=== PATIENT | female | born 1995 | race Caucasian/White ===

== ENCOUNTER 2016-12-14 15:48 | Emergency (ER) | payer OTHER ==
[~2016-12-14] VITALS: Ht 162.6 cm; Wt 100.2 kg
[~2016-12-14 15:48] MED LIST: COLACE100 M1 PO; DEPO-PROVER150 MG/ML IM; DICLEGIS DR 101 EACH PO; DOXYCYCLINE100 M3 PO; EPIPEN 2-P0.3 MG/0.3 IM; FLEXERIL10 MG PO; GABAPENTIN300 MG PO; HYDROXYZINE PAM25 M1 PO; HYDROXYZINE PAM25 M2 PO; LIDOCAINE1 EACH TOP; METHADONE10 MG/5 M2 PO; MOTRIN800 MG PO; PERCOCET 325 MG1 TA2 PO; PRENATAL TABLE1 EAC2 PO; PROAIR HFA8.5 GM INH; REGLAN10 M1 PO; REMERON30 MG PO; ULTRAM(MONOGRAP50 MG PO; VOLTAREN75 MG PO; ZOFRAN ODT4 M1 SL
[2016-12-14 16:04] VITALS: BP 138/88
--- NOTE | 2016-12-14 16:50 | RADIOLOGY REPORT ---
EXAMINATION: XR WRIST, RIGHT CLINICAL INFORMATION: Right wrist pain and swelling. COMPARISON: None. TECHNIQUE: AP, lateral, oblique and navicular views of the right wrist. FINDINGS: No acute fracture or dislocation of the right wrist. Carpal alignment appears grossly maintained. The first and second carpal are intact. No bone, joint or soft tissue abnormality is demonstrated. IMPRESSION: No acute fracture or dislocation of the right wrist.
[2016-12-14] MEDS ORDERED: MOBIC15 M1 PO ×2 (18:13→18:29)
--- NOTE | 2016-12-14 18:14 | ED HAND/WRIST INJURY COMPLAINT ---
History of Present Illness General Chief Complaint: Hand or Wrist Injury Stated Complaint: RIGHT WRIST PAIN Source: patient Exam Limitations: no limitations Vital Signs & Intake/Output Vital Signs & Intake/Output Vital Signs Date Time Temp Pulse Resp B/P Pulse O2 O2 Flow FiO2 Ox Delivery Rate 12/14 1604 97.1 76 18 138/88 98 Room Air Allergies Coded Allergies: codeine (BLACK OUT PER PT 12/14/16) oxycodone (PASSED OUT 07/07/16) shellfish derived (ANAPHYLAXIS 07/07/16) venom-honey bee (BEE VENOM (HONEY BEE)) (ANAPHYLAXIS 07/07/16) Opioids - Morphine Analogues (HX OPIOID DEPENDENCE. PT REQUESTING NO OPIOIDS GIVEN. 07/07/16) Reconcile Medications Clotrimazole/Betamethasone Dip (Clotrimazole-Betamethasone Crm) 1 %-0.05 % CREAM..G. 1 MARIO TOP BID C SECTION (Reported) apply to affected area(s) Epinephrine (Epipen 2-Gilbert) 0.3 MG/0.3 ML AUTO.INJCT 0.3 MG IM AD PRN ALLERGIC REACTION (Reported) Ibuprofen 600 MG TABLET 1 TAB PO PRN PAIN/INFLAMMATION (Reported) with food Meloxicam (Mobic) 15 MG TABLET 1 TAB PO DAILY pain Sertraline HCl 50 MG TABLET 0.5 TAB PO DAILY PSOT DEPRESSION (Reported ) Triage Note: COMPLAINS OF R WRIST PAIN SINCE SEP , HAS NOT BEEN TO MD GUERO DEVRIES Triage Nurses Notes Reviewed? yes Duration: hour(s):, constant, continues in ED Timing: recent history Injury Environment: home Pain/Injury Location: Right: Wrist. No Modifying Factors: none : No Patient currently breastfeeds: No HPI: 21-year-old female comes into emergency room with complaints of right wrist pain has been going on for many weeks. Patient reports that over a month ago she had punched something is been experiencing wrist pain since then. Patient didn't again initially evaluated because she was and just gave about a month ago. Patient is currently not breast-feeding. Patient reports that she's had this persistent right wrist pain. Hurts with range of motion. Denies any other associated symptoms. Past History Travel History Traveled to [place] past 21 day No Medical History Any Pertinent Medical History? 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 No Review of Systems Review of Systems Constitutional: Reports: no symptoms. EENTM: Reports: no symptoms. Respiratory: Reports: no symptoms. Cardiovascular: Reports: no symptoms. GI: Reports: no symptoms. Genitourinary: Reports: no symptoms. Musculoskeletal: Reports: see HPI. Skin: Reports: no symptoms. Neurological/Psychological: Reports: no symptoms. Hematologic/Endocrine: Reports: no symptoms. Immunologic/Allergic: Reports: no symptoms. All Other Systems: Reviewed and Negative Physical Exam Physical Exam General Appearance: well developed/nourished Head: atraumatic Eyes: Bilateral: normal appearance. Ears, Nose, Throat: normal ENT inspection, hearing grossly normal Neck: normal inspection Cardiovascular/Respiratory: no respiratory distress Back: normal inspection Wrist Right: soft tissue tenderness, limited range of motion, POSITIVE Marce'S TEST Hand Left: normal inspection, normal range of motion Hand Right: normal inspection, normal range of motion Neurologic/Tendon: normal sensation, normal motor functions, normal tendon functions, responds to pain, no evidence tendon injury, no pulse deficit Skin: intact, normal color, warm/dry Lymphatic: no anterior cervical lynne Progress Differential Diagnosis: dislocation, fracture, gout, paronychia, septic arthritis, sprain, tenosynovitis Plan of Care: Orders Procedure Date/time Status Durable Medical Equipment 12/14 1811 Active Diagnostic Imaging: Viewed by Me: Radiology Read. Discussed w/RAD: Radiology Read. Radiology Impression: SERVICE DATE: 12/14/161606 EXAM TYPE: RAD - XRY-WRIST COMPLETE-RIGHT EXAMINATION: XR WRIST, RIGHT CLINICAL INFORMATION: Right wrist pain and swelling. COMPARISON: None. TECHNIQUE: AP, lateral, oblique and navicular views of the right wrist. FINDINGS: No acute fracture or dislocation of the right wrist. Carpal alignment appears grossly maintained. The first and second carpal are intact. No bone, joint or soft tissue abnormality is demonstrated. IMPRESSION: No acute fracture or dislocation of the right wrist. DICTATED BY: KONRAD ELAINE,JULIANA DATE/TIME DICTATED:12/14/161637 FURNITURE MOVER:ZACARIAS DATE/TIME TRANSCRIBED:12/14/161637 Departure Departure Disposition: HOME OR SELF CARE Condition: Stable Clinical Impression Primary Impression: De Quervain's tenosynovitis, right Referrals: PATIENT HAS NO PRIMARY CARE DR (PCP/Family) RAKESH ELAINE,DARY Arevalo Additional Instructions: Take mobic as prescribed. Rest. Follow-up with orthopedic if not better in 14 days. Return if any other concerns worsening symptoms. Please go over all results of today's visit with your primary care doctor. Contact your primary care doctor to let them know you were here in the emergency room. There may be nonspecific findings which may not be related to your visit today here in the emergency room but may require further evaluation and chronic monitoring by your primary care doctor. If you had a laceration today the chance of foreign body always remains. You should follow-up with your primary care doctor for recheck in 3-5 days for a wound check. If you had an x-ray done there is a chance that a fracture could have been missed on initial read and you should follow-up with your primary care doctor for repeat x-rays if symptoms persist. If your blood pressure was elevated here in the emergency room please have rechecked by her primary care doctor within the next 48 hours by your primary care doctor. If you were prescribed a narcotic here in the emergency room or any type of controlled substances you're not allowed to drive while taking this medication or operate any type of heavy machinery. Narcotics can make you feel lightheaded dizziness nausea and can cause constipation. You may need to tow picker a stool softener. Thank you for choosing [facility] emergency room. Please return to the emergency room immediately if you have any other concerns worsening of symptoms. Departure Forms: Customer Survey General Discharge Information Prescriptions: Current Visit Scripts Meloxicam (Mobic) 1 TAB PO DAILY #14 TAB Procedures Splinting Location: right wrist Manual Alignment Performed: No Pre-Made Type: velcro Splint: thumb spica, wrist Splint Applied By: splint applied by me Pre-Proc Neuro Vasc Exam: normal Post-Proc Neuro Vasc Exam: normal
[2016-12-14] MEDS ORDERED: SERTRALINE HCL50 MG PO (18:15)
[2016-12-14] MEDS ORDERED: CLOTRIMAZOLE-BE15 GM TOP (18:15)
[2016-12-14] MEDS ORDERED: IBUPROFEN600 M1 PO (18:15)
== END 2016-12-14 18:32 ==
LOC: ERH 15:48
DX: M65.88 Other synovitis and tenosynovitis, other site (principal)
CPT/HCPCS: 73110-RT

== ENCOUNTER 2017-01-18 14:19 | Emergency (ER) | payer OTHER ==
[~2017-01-18] VITALS: Ht 162.6 cm; Wt 100.7 kg
[~2017-01-18 14:19] MED LIST changes: +CLOTRIMAZOLE-BE15 GM TOP; +IBUPROFEN600 M1 PO; +MOBIC15 M1 PO; +SERTRALINE HCL50 MG PO
[2017-01-18 14:22] VITALS: BP 139/88
--- NOTE | 2017-01-18 14:56 | ED HAND/WRIST INJURY COMPLAINT ---
History of Present Illness General Chief Complaint: Hand or Wrist Injury Stated Complaint: R HAND INJURY Source: patient, old records Exam Limitations: no limitations Vital Signs & Intake/Output Vital Signs & Intake/Output Vital Signs Date Time Temp Pulse Resp B/P Pulse O2 O2 Flow FiO2 Ox Delivery Rate 01/18 1422 97.3 91 20 139/88 96 Room Air Allergies Coded Allergies: codeine (BLACK OUT PER PT 12/14/16) oxycodone (PASSED OUT 07/07/16) shellfish derived (ANAPHYLAXIS 07/07/16) venom-honey bee (BEE VENOM (HONEY BEE)) (ANAPHYLAXIS 07/07/16) Opioids - Morphine Analogues (HX OPIOID DEPENDENCE. PT REQUESTING NO OPIOIDS GIVEN. 07/07/16) Reconcile Medications Clotrimazole/Betamethasone Dip (Clotrimazole-Betamethasone Crm) 1 %-0.05 % CREAM..G. 1 MARIO TOP BID C SECTION (Reported) apply to affected area(s) Epinephrine (Epipen 2-Gilbert) 0.3 MG/0.3 ML AUTO.INJCT 0.3 MG IM AD PRN ALLERGIC REACTION (Reported) Ibuprofen 600 MG TABLET 1 TAB PO PRN PAIN/INFLAMMATION (Reported) with food Meloxicam (Mobic) 15 MG TABLET 1 TAB PO DAILY pain Sertraline HCl 50 MG TABLET 0.5 TAB PO DAILY PSOT DEPRESSION (Reported ) Tramadol HCl 50 MG TABLET 1 TAB PO BIDP PRN pain Triage Note: PT TO ED C/O RIGHT HAND PAIN S/P PUNCHING A PUNCHING BAG ON WEDNESDAY. HAS BEEN TAKING MOTRIN WITH NO RELIEF. REFUSING MEDS IN TRIAGE. RIGHT HAND SWOLLEN AND SOME BRUISING NOTED. Triage Nurses Notes Reviewed? yes Occurred: 3 days ago Duration: day(s): (3), constant Timing: recent history Injury Environment: home Severity: moderate Severity Numbers: 7 Pain/Injury Location: Right: Hand. Context: blow Method of Injury: direct blow Modifying Factors: Improves With: pain medication, rest. Worsens With: movement. Associated Symptoms: swelling : No Patient currently breastfeeds: No HPI: 21-year-old male presents to emergency room complaining of right dorsal hand pain for the past 3 days. Patient states that she was punching a punching bag and states since then she has had progressing worsening aching throbbing pain. She is right-hand dominant. She been taking ibuprofen without improvement.. She denies any wrist forearm elbow or shoulder pain there is no other injury there is no fall she denies any numbness or tingling. Symptoms are aching constant nonradiating sudden onset. pt declining anything for pain. Past History Travel History Traveled to [place] past 21 day No Medical History Any Pertinent Medical History? 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 No Review of Systems Review of Systems Constitutional: Reports: see HPI. All Other Systems: Reviewed and Negative Comments Review of systems: See HPI, All other systems negative. Constitutional, no chills no fever, no malaise HEENT: No visual changes no sore throat no congestion, Cardiovascular: No chest pain , no palpitation Skin, no rashes, no change in skin Respiratory: No dyspnea no cough no sputum GI: No nausea no vomiting, : No dysuria Muscle skeletal: joint pain, joint swelling, no back pain, no neck pain, Neurologic: No numbness no headache Psych: No stress Heme/endocrine: No bruising no bleeding Immunology: No lymphadenopathy Physical Exam Physical Exam General Appearance: well developed/nourished, no apparent distress, alert, awake Hand Left: normal inspection, normal range of motion Hand Right: swelling, tender Comments: Well-developed well-nourished patient in no apparent distress. HEENT: Atraumatic, extraocular motion intact Neck: Supple, FROM, Back: FROM Cardiovascular: Regular rate and rhythms no murmurs rubs Respiratory: No respiratory distress. Patient speaking in full complete sentences. Breath sounds clear to auscultation bilaterally: NO W/R/R Shoulder: Atraumatic/Stable. FROM . Elbow: Atraumatic/stable. FROM. No laxity Upper arm/Forearm: Atraumatic. Nontender. No edema, 5 out of 5 heel builder machine strength noted to bilateral upper extremities Hand/Wrist: Moderate swelling and ecchymosis over the dorsum of the right hand, limited range of motion of the right fifth finger secondary to pain, Skin intact. FROM of all other fingers full range motion of wrist no scaphoid tenderness Pulses: Normal/equal radial pulses bilaterally. Brisk cap refill Lower Extremities: full range of motion Neuro: Alert and oriented x3 Skin: Warm & dry;No appreciable rash on exposed skin Psych: Mood affect normal, normal memory normal judgment. Progress Differential Diagnosis: compartment syndrome, dislocation, fracture, sprain Plan of Care: Orders Procedure Date/time Status XRY-HAND, 3 View RIGHT 01/18 1454 Active X-ray ordered patient declining pain offered Discussed with patient her x-ray results, ulnar gutter splint was applied by me advise close follow-up with orthopedist, rest ice, Motrin for prescription for tramadol provided for breakthrough pain, and she will return anytime sooner with any concerns answered all her questions cleared for discharge PATIENT: PHILLIP MARTINEZ PRESENT AGE: 21 PATIENT ACCOUNT NO: [id number] : 94 LOCATION: [facility] ORDERING PHYSICIAN: MELISSA ORELLANA SERVICE DATE: 01/18/17-1453 EXAM TYPE: RAD - XRY-HAND, RIGHT EXAMINATION: XR HAND, RIGHT CLINICAL INFORMATION: Pain. Punched punching bag. COMPARISON: 12/14/2016 TECHNIQUE: AP, lateral, and oblique views of the right hand. FINDINGS: There is a new oblique/transverse fracture at the fifth metacarpal head/neck with possible intra-articular involvement. There is mild apex dorsal and apex medial evaluation at the fracture site. No additional fractures are identified. Stranding soft tissues are swollen. IMPRESSION: Acute oblique/transverse fracture of the fifth metacarpal head/neck with mild apex dorsal and apex ulnar angulation DICTATED BY: JOYCE ALAN MD DATE/TIME DICTATED:01/18/171513 SUPERVISOR DRAPERY HANGING:ZACARIAS DATE/TIME TRANSCRIBED:01/18/171513 CONFIDENTIAL, DO NOT COPY WITHOUT APPROPRIATE AUTHORIZATION. <Electronically signed in Other Vendor System> SIGNED BY: JOYCE ALAN MD 01/18/17 2670 (JAYSON ORELLANA,MELISSA) Diagnostic Imaging: Viewed by Me: Radiology Read. Discussed w/RAD: Radiology Read. Radiology Impression: PATIENT: PHILLIP MARTINEZ PRESENT AGE: 21 PATIENT ACCOUNT NO: [id number] : 94 LOCATION: [facility] ORDERING PHYSICIAN: MELISSA ORELLANA SERVICE DATE: 01/18/17-1453 EXAM TYPE: RAD - XRY-HAND, RIGHT EXAMINATION: XR HAND, RIGHT CLINICAL INFORMATION: Pain. Punched punching bag. COMPARISON: 12/14/2016 TECHNIQUE: AP, lateral, and oblique views of the right hand. FINDINGS: There is a new oblique/transverse fracture at the fifth metacarpal head/neck with possible intra-articular involvement. There is mild apex dorsal and apex medial evaluation at the fracture site. No additional fractures are identified. Stranding soft tissues are swollen. IMPRESSION: Acute oblique/transverse fracture of the fifth metacarpal head/neck with mild apex dorsal and apex ulnar angulation DICTATED BY: JOYCE ALAN MD DATE/TIME DICTATED:01/18/171513 SUPERVISOR DRAPERY HANGING:ZACARIAS DATE/TIME TRANSCRIBED:01/18/171513 CONFIDENTIAL, DO NOT COPY WITHOUT APPROPRIATE AUTHORIZATION. <Electronically signed in Other Vendor System> SIGNED BY: JOYCE ALAN MD 01/18/17 1520 Departure Departure Time of Disposition: 1530 Disposition: HOME OR SELF CARE Condition: Stable Clinical Impression Primary Impression: Boxers fracture Referrals: PATIENT HAS NO PRIMARY CARE DR (PCP/Family) GARY GODINEZ MD Additional Instructions: follow up with orthopedist dr godinez. keep splint on at all times until seen by orthopedist. ibuprofen 800mg every 8 hours. tramadol for breakthrough pain. use caution as this may make you drowsy. return with any concerns Departure Forms: Customer Survey General Discharge Information Prescriptions: Current Visit Scripts Tramadol HCl 1 TAB PO BIDP PRN pain #12 TAB Procedures Splinting Location: RUE Hand-Made Type: orthoglass Splint: ulnar Splint Applied By: splint applied by me Pre-Proc Neuro Vasc Exam: normal Post-Proc Neuro Vasc Exam: normal
--- NOTE | 2017-01-18 15:20 | RADIOLOGY REPORT ---
EXAMINATION: XR HAND, RIGHT CLINICAL INFORMATION: Pain. Punched punching bag. COMPARISON: 12/14/2016 TECHNIQUE: AP, lateral, and oblique views of the right hand. FINDINGS: There is a new oblique/transverse fracture at the fifth metacarpal head/neck with possible intra-articular involvement. There is mild apex dorsal and apex medial evaluation at the fracture site. No additional fractures are identified. Stranding soft tissues are swollen. IMPRESSION: Acute oblique/transverse fracture of the fifth metacarpal head/neck with mild apex dorsal and apex ulnar angulation
[2017-01-18] MEDS ORDERED: TRAMADOL HCL50 M1 PO (15:32)
== END 2017-01-18 15:33 ==
LOC: ERH 14:19
DX: S62.336A Displaced fracture of neck of fifth metacarpal bone, right hand, initial encounter for closed fracture (principal); W22.8XXA Striking against or struck by other objects, initial encounter; Y93.71 Activity, boxing
CPT/HCPCS: 73130-RT

== ENCOUNTER 2017-03-31 15:27 | Emergency (ER) | payer OTHER ==
[~2017-03-31] VITALS: Ht 162.6 cm; Wt 108.9 kg
[~2017-03-31 15:27] MED LIST changes: +TRAMADOL HCL50 M1 PO
--- NOTE | 2017-03-31 15:46 | ED GI/GU/ABDOMINAL COMPLAINT ---
History of Present Illness General Chief Complaint: Abdominal Pain/Flank Pain Stated Complaint: SIB DR. ROJAS FOR EVAL OF GALLBLADDER Source: patient Exam Limitations: no limitations Allergies Coded Allergies: codeine (BLACK OUT PER PT 04/01/17) oxycodone (PASSED OUT 04/01/17) shellfish derived (ANAPHYLAXIS 04/01/17) venom-honey bee (BEE VENOM (HONEY BEE)) (ANAPHYLAXIS 04/01/17) Opioids - Morphine Analogues (HX OPIOID DEPENDENCE. PT REQUESTING NO OPIOIDS GIVEN. 04/01/17) Triage Note: SENT IN BY DR. ROJAS'S OFFICE FOR "GALLSTONES, I PASSED OUT FROM THE PAIN." PT HAD ULTRASOUND AND BLOODWORK DONE 1 WEEK AGO. PAIN IS WORSENING. Triage Nurses Notes Reviewed? yes ? N Is pt currently ? No Onset: Abrupt Duration: week(s):, getting worse, intermittent Quality/Severity: moderate, sharpness, severe Location: right upper quadrant Radiation: no radiation No Modifying Factors: none HPI: 21-year-old female comes into emergency room with complaints of right upper quadrant pain. Patient reports that she has known gallstones that she's been dealing with for many months. Pain is gotten worse recently. Denies any fever or vomiting. Sharp pain. Nonradiating. Denies any change in bowel movement. Denies any other associated symptoms. Patient reports that the pain was so severe today that she passed out from the pain. (CARLOZ ORELLANA,KIRSTIN) Vital Signs & Intake/Output Vital Signs & Intake/Output Vital Signs Date Time Temp Pulse Resp B/P B/P Pulse O2 O2 Flow FiO2 Mean Ox Delivery Rate 03/31 1721 98.1 72 18 151/84 98 Room Air 03/31 1538 99.1 110 20 134/100 99 Room Air 03/31 1535 Room Air ED Intake and Output 04/01 0000 03/31 1200 Intake Total 0 Output Total Balance 0 Intake, Oral 0 Patient 240 lb Weight Weight Reported by Patient Measurement Method Reconcile Medications Clotrimazole/Betamethasone Dip (Clotrimazole-Betamethasone Crm) 1 %-0.05 % CREAM..G. 1 MARIO TOP BID C SECTION (Reported) apply to affected area(s) Epinephrine (Epipen 2-Gilbert) 0.3 MG/0.3 ML AUTO.INJCT 0.3 MG IM AD PRN ALLERGIC REACTION (Reported) Ibuprofen 600 MG TABLET 1 TAB PO PRN PAIN/INFLAMMATION (Reported) with food Medroxyprogesterone Acetate (Depo-Provera) 150 MG/ML DESI 1 ML IM Q3M CONTROL (Reported) Meloxicam (Mobic) 15 MG TABLET 1 TAB PO DAILY pain Oxycodone HCl/Acetaminophen (Percocet 5-325 MG Tablet) 5 MG-325 MG TABLET 1-2 TAB PO Q6P PRN PAIN OXYCODONE HCL/ACETAMINOPHEN (Percocet 5-325 MG Tablet) 325 MG/5 MG TAB 1-2 TAB PO Q4-6 PRN PRN PAIN Sertraline HCl 50 MG TABLET 0.5 TAB PO DAILY PSOT DEPRESSION (Reported ) Tramadol HCl 50 MG TABLET 1 TAB PO BIDP PRN pain (MEET ELAINE,JESUS) Past History Travel History Traveled to [place] past 21 day No Medical History Any Pertinent Medical History? see below for history Neurological: NONE EENT: NONE Cardiovascular: NONE Respiratory: pneumonia Gastrointestinal: NONE Hepatic: NONE Renal: NONE Musculoskeletal: NONE Psychiatric: anxiety, depression, opioid dependence Endocrine: NONE Blood Disorders: NONE Cancer(s): NONE PHOTOGRAPHIC ARTIST/Reproductive: PREECLAMPSIA Other Medical Hx: She denies other medical problems Surgical History Surgical History: Psychosocial History What is your primary language Frisian Family History Hx Contributory? No (KIRSTIN COREY) Review of Systems Review of Systems Constitutional: Reports: no symptoms. EENTM: Reports: no symptoms. Respiratory: Reports: no symptoms. Cardiovascular: Reports: no symptoms. GI: Reports: see HPI. Genitourinary: Reports: no symptoms. Musculoskeletal: Reports: no symptoms. Skin: Reports: no symptoms. Neurological/Psychological: Reports: no symptoms. Hematologic/Endocrine: Reports: no symptoms. Immunologic/Allergic: Reports: no symptoms. All Other Systems: Reviewed and Negative (KIRSTIN COREY) Physical Exam Physical Exam General Appearance: well developed/nourished, alert, awake Head: atraumatic, normal appearance Eyes: Bilateral: normal appearance. Ears, Nose, Throat, Mouth: hearing grossly normal, moist mucous membrane Neck: normal inspection, full range of motion Respiratory: normal breath sounds, no respiratory distress Cardiovascular: regular rate/rhythm Gastrointestinal: soft, tenderness (RUQ) Back: normal inspection Extremities: normal range of motion Neurologic/Psych: awake, alert, oriented x 3, normal gait, normal mood/affect Skin: intact, normal color Core Measures ACS in differential dx? No Severe Sepsis Present: No Septic Shock Present: No (KIRSTIN COREY) Progress Differential Diagnosis: AMI, appendicitis, colon cancer, cholecystitis, diverticulitis, gastritis, hepatitis, hemorrhoids, ischemic bowel, inflamm bowel dis, intrauterine , pancreatitis, PID/cervicitis, peptic ulcer, PUD/ GERD, perforated viscous, SBO, threatened AB, UTI/pyelo Diagnostic Imaging: Viewed by Me: Ultrasound. Discussed w/RAD: Ultrasound. Radiology Impression: SERVICE DATE: 03/31/17 EXAM TYPE: US - US-LIMITED ABDOMEN EXAMINATION: ABDOMINAL ULTRASOUND LIMITED CLINICAL INFORMATION: Right upper quadrant pain. COMPARISON: 03/24/2017. TECHNIQUE: Real-time imaging of the right upper quadrant abdominal viscera. FINDINGS: PANCREAS: The visualized pancreatic head and body are normal in appearance. The remainder of the pancreas is obscured from visualization by the overlying bowel gas. LIVER: The liver is of normal size and echogenicity without focal lesions nor intrahepatic biliary ductal dilation. GALLBLADDER: There are calculi within the gallbladder lumen. There is no wall thickening or pericholecystic fluid. COMMON BILE DUCT: Normal in caliber measuring 0.3 cm in diameter. RIGHT KIDNEY: Normal. No hydronephrosis. No renal calculi or focal parenchymal lesions. The kidney measures 12.2 cm in maximum dimension. FREE FLUID: None. IMPRESSION: Cholelithiasis without sonographic manifestations of cholecystitis. DICTATED BY: IWONA VICENTE MD DATE/TIME DICTATED:03/31/171699 LABORATORY AIDE:ZACARIAS DATE/TIME TRANSCRIBED:03/31/171699 Initial ED EKG: normal intervals, normal p-waves, normal QRS complex, normal sinus rhythm, rate (80) Comments: Case was discussed with Dr. Greene. Patient has no evidence of cholecystitis. Patient will be discharged with follow-up tomorrow in the office. Pain improved. No white count. Understands and agrees with plan of care. EKG within normal limits. Syncopal episode secondary to pain. (KIRSTIN COREY) Plan of Care: Orders Procedure Date/time Status EKG 03/31 1546 Active URINE 05/10 1534 Complete URINALYSIS 03/31 1534 Complete LIPASE 03/31 153 Complete COMPREHENSIVE METABOLIC PANEL 03/31 153 Complete CBC WITHOUT DIFFERENTIAL 03/31 153 Complete AMYLASE 03/31 153 Complete Laboratory Tests 03/31/17 1653: Urine Color YEL, Urine Clarity CLEAR, Urine pH 8.5 H, Ur Specific [place] 1.015 , Urine Protein TRACE H, Urine Ketones NEG, Urine Nitrite NEG, Urine Bilirubin NEG, Urine Urobilinogen 1.0, Ur Leukocyte Esterase NEG, Ur Microscopic SEDIMENT EXAMINED, Urine RBC RARE, Ur Epithelial Cells MOD H, Urine Bacteria MANY H, Urine Hemoglobin NEG, Urine Glucose NEG, Urine Test NEGATIVE 03/31/17 1623: Anion Gap 12, Estimated GFR > 60, BUN/Creatinine Ratio 12.5, Glucose 110 H, Calcium 9.3, Total Bilirubin 1.2, AST 19, ALT 58 H, Alkaline Phosphatase 71, Total Protein 7.5, Albumin 4.5, Globulin 3.0, Albumin/Globulin Ratio 1.5, Amylase 36, Lipase 58, CBC w Diff NO MAN DIFF REQ, RBC 5.01, MCV 87.2, MCH 29.6, RDW 12.8, MPV 9.4, Gran % 74.7, Lymphocytes % 19.0 L, Monocytes % 5.5, Eosinophils % 0.5, Basophils % 0.3, Absolute Granulocytes 5.3, Absolute Lymphocytes 1.3, Absolute Monocytes 0.4, Absolute Eosinophils 0, Absolute Basophils 0, PUBS MCHC 33.9 Departure Departure Disposition: HOME OR SELF CARE Condition: Stable Clinical Impression Primary Impression: Biliary colic Secondary Impressions: Cholelithiasis Referrals: PATIENT HAS NO PRIMARY CARE DR (PCP) Additional Instructions: Take Percocet as prescribed. Follow-up with general surgeon tomorrow in the office. Return if any fever chills vomiting or any other concerns worsening symptoms. Please go over all results of today's visit with your primary care doctor. Contact your primary care doctor to let them know you were here in the emergency room. There may be nonspecific findings which may not be related to your visit today here in the emergency room but may require further evaluation and chronic monitoring by your primary care doctor. If you had a laceration today the chance of foreign body always remains. You should follow-up with your primary care doctor for recheck in 3-5 days for a wound check. If you had an x-ray done there is a chance that a fracture could have been missed on initial read and you should follow-up with your primary care doctor for repeat x-rays if symptoms persist. If your blood pressure was elevated here in the emergency room please have rechecked by her primary care doctor within the next 48 hours by your primary care doctor. If you were prescribed a narcotic here in the emergency room or any type of controlled substances you're not allowed to drive while taking this medication or operate any type of heavy machinery. Narcotics can make you feel lightheaded dizziness nausea and can cause constipation. You may need to brick picker a stool softener. Thank you for choosing [facility] emergency room. Please return to the emergency room immediately if you have any other concerns worsening of symptoms. Departure Forms: Customer Survey General Discharge Information Prescriptions: Current Visit Scripts Oxycodone HCl/Acetaminophen (Percocet 5-325 MG Tablet) 1-2 TAB PO Q6P PRN PAIN #15 TAB (KIRSTIN COREY) PA/SOFTWARE REVERSE ENGINEER Co-Sign Statement Statement: ED Attending supervision documentation- [] I saw and evaluated the patient. I have also reviewed all the pertinent lab results and diagnostic results. I agree with the findings and the plan of care as documented in the PA's/SOFTWARE REVERSE ENGINEER's documentation. [X] I have reviewed the ED Record and agree with the PA's/SOFTWARE REVERSE ENGINEER's documentation. [] Additions or exceptions (if any) to the PAs/SOFTWARE REVERSE ENGINEER's note and plan are summarized below: [] (MEET ELAINE,JESUS)
[2017-03-31 16:33] LABS: ABSOLUTE BASOPHIL COUNT 0 /CUMM (0.0-0.2); ABSOLUTE EOSINOPHIL COUNT 0 /CUMM (0.0-0.7); ABSOLUTE GRANULOCYTE CT 5.3 /CUMM (1.4-6.5); ABSOLUTE LYMPH COUNT 1.3 /CUMM (1.2-3.4); ABSOLUTE MONOCYTE COUNT 0.4 /CUMM (0.10-0.60); BASOPHIL % 0.3 % (0.0-2.0); EOSINOPHIL % 0.5 % (0-5); GRANULOCYTE % 74.7 % (42.2-75.2); HEMATOCRIT 43.7 % (37-47); MEAN CORPUSCULAR HGB 29.6 PG (27.0-31.0); MEAN CORPUSCULAR HGB CONC 33.9 G/DL (33.0-37.0); MEAN CORPUSCULAR VOLUME 87.2 FL (81.0-99.0); MEAN PLATELET VOLUME 9.4 FL (7.4-10.4); PLATELET COUNT 227 /CUMM (130-400); RBC DISTRIBUTION WIDTH 12.8 % (11.5-14.5); RED BLOOD CELL CT 5.01 /CUMM (4.20-5.40)
--- NOTE | 2017-03-31 17:04 | ULTRASOUND REPORT ---
EXAMINATION: ABDOMINAL ULTRASOUND LIMITED CLINICAL INFORMATION: Right upper quadrant pain. COMPARISON: 03/24/2017. TECHNIQUE: Real-time imaging of the right upper quadrant abdominal viscera. FINDINGS: PANCREAS: The visualized pancreatic head and body are normal in appearance. The remainder of the pancreas is obscured from visualization by the overlying bowel gas. LIVER: The liver is of normal size and echogenicity without focal lesions nor intrahepatic biliary ductal dilation. GALLBLADDER: There are calculi within the gallbladder lumen. There is no wall thickening or pericholecystic fluid. COMMON BILE DUCT: Normal in caliber measuring 0.3 cm in diameter. RIGHT KIDNEY: Normal. No hydronephrosis. No renal calculi or focal parenchymal lesions. The kidney measures 12.2 cm in maximum dimension. FREE FLUID: None. IMPRESSION: Cholelithiasis without sonographic manifestations of cholecystitis.
[2017-03-31 17:21] VITALS: BP 151/84
[2017-03-31] MEDS ORDERED: PERCOCET 5-3251 EACH PO (17:37)
== END 2017-03-31 17:45 ==
LOC: ERH 15:27
PROVIDERS: Physician Assistant Medical
DX: K80.50 Calculus of bile duct without cholangitis or cholecystitis without obstruction (principal); K80.20 Calculus of gallbladder without cholecystitis without obstruction
CPT/HCPCS: 81001; 81025; 93005; 93010; 96372

== ENCOUNTER 2017-04-01 11:02 | Emergency (ER) | payer OTHER ==
[~2017-04-01] VITALS: Ht 162.6 cm; Wt 108.9 kg
[~2017-04-01 11:02] MED LIST changes: +PERCOCET 5-3251 EACH PO
--- NOTE | 2017-04-01 11:52 | ED GI/GU/ABDOMINAL COMPLAINT ---
History of Present Illness General Chief Complaint: Abdominal Pain/Flank Pain Stated Complaint: ABDOMINAL PAIN, UNABLE TO EAT OR DRINK Source: patient, old records Exam Limitations: no limitations Vital Signs & Intake/Output Vital Signs & Intake/Output Vital Signs Date Time Temp Pulse Resp B/P B/P Pulse O2 O2 Flow FiO2 Mean Ox Delivery Rate 04/01 1514 98.0 72 12 112/58 100 Room Air 04/01 1244 86 16 124/85 98 Room Air 04/01 1107 98.9 102 15 138/90 96 Room Air Room Air Allergies Coded Allergies: codeine (BLACK OUT PER PT 04/01/17) oxycodone (PASSED OUT 04/01/17) shellfish derived (ANAPHYLAXIS 04/01/17) venom-honey bee (BEE VENOM (HONEY BEE)) (ANAPHYLAXIS 04/01/17) Opioids - Morphine Analogues (HX OPIOID DEPENDENCE. PT REQUESTING NO OPIOIDS GIVEN. 04/01/17) Reconcile Medications Clotrimazole/Betamethasone Dip (Clotrimazole-Betamethasone Crm) 1 %-0.05 % CREAM..G. 1 MARIO TOP BID C SECTION (Reported) apply to affected area(s) Epinephrine (Epipen 2-Gilbert) 0.3 MG/0.3 ML AUTO.INJCT 0.3 MG IM AD PRN ALLERGIC REACTION (Reported) Ibuprofen 600 MG TABLET 1 TAB PO PRN PAIN/INFLAMMATION (Reported) with food Medroxyprogesterone Acetate (Depo-Provera) 150 MG/ML DESI 1 ML IM Q3M CONTROL (Reported) Meloxicam (Mobic) 15 MG TABLET 1 TAB PO DAILY pain Oxycodone HCl/Acetaminophen (Percocet 5-325 MG Tablet) 5 MG-325 MG TABLET 1-2 TAB PO Q6P PRN PAIN OXYCODONE HCL/ACETAMINOPHEN (Percocet 5-325 MG Tablet) 325 MG/5 MG TAB 1-2 TAB PO Q4-6 PRN PRN PAIN Sertraline HCl 50 MG TABLET 0.5 TAB PO DAILY PSOT DEPRESSION (Reported ) Tramadol HCl 50 MG TABLET 1 TAB PO BIDP PRN pain Triage Note: PT TO ED FOR C/C OF RUQ PAIN 8/10 AND NAUSEA AND VOMITING. 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 SEEN HERE YESTERDAY AND DIAGNOSED WITH GALL STONES AND PT SPOKE TO HER DOCTOR WHO SAID TO COME IN. PT ALSO REPORTS SHE PASSED OUT TODAY 30 MINS SERVICE ORDER CLERK FRO MTHE PAIN. PT TOOK 2 PERCOCETS SERVICE ORDER CLERK WITHOUT RELIEF. Triage Nurses Notes Reviewed? yes ? N Is pt currently ? No Onset: Abrupt Duration: day(s):, constant Timing: recent history Quality/Severity: moderate, sharpness, severe Location: right upper quadrant Radiation: no radiation Activities at Onset: none No Modifying Factors: none HPI: 21-year-old female comes into emergency room with persistent right upper abdominal pain. Patient has history of gallstones. Patient was seen here last night. Patient was supposed to follow-up with Dr. Greene as an outpatient from surgery but he cannot fit her in until Wednesday. Patient reports that the pain has gotten progressively worse. Sharp. Intermittent. Patient reports a fever of 103 last night. Patient comes back in for further evaluation. Past History Travel History Traveled to [place] past 21 day No Medical History Any Pertinent Medical History? 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 No Review of Systems Review of Systems Constitutional: Reports: no symptoms. EENTM: Reports: no symptoms. Respiratory: Reports: no symptoms. Cardiovascular: Reports: no symptoms. GI: Reports: see HPI. Genitourinary: Reports: no symptoms. Musculoskeletal: Reports: no symptoms. Skin: Reports: no symptoms. Neurological/Psychological: Reports: no symptoms. Hematologic/Endocrine: Reports: no symptoms. Immunologic/Allergic: Reports: no symptoms. All Other Systems: Reviewed and Negative Physical Exam Physical Exam General Appearance: well developed/nourished, alert, awake, mild distress Head: atraumatic Eyes: Bilateral: normal appearance. Ears, Nose, Throat, Mouth: hearing grossly normal, moist mucous membrane Neck: normal inspection, full range of motion Respiratory: normal breath sounds, no respiratory distress Cardiovascular: regular rate/rhythm Gastrointestinal: soft, tenderness (RUQ) Back: normal inspection Extremities: normal range of motion Neurologic/Psych: awake, alert, oriented x 3 Skin: intact, normal color Core Measures ACS in differential dx? No Severe Sepsis Present: No Septic Shock Present: No Progress Differential Diagnosis: appendicitis, biliary colic, bowel obstruction, cholecystitis, diverticulitis, ectopic , gastritis, hepatitis, kidney stone, SBO Plan of Care: Orders Procedure Date/time Status COMPREHENSIVE METABOLIC PANEL 04/01 112 Complete CBC WITHOUT DIFFERENTIAL 04/01 112 Complete URINE 04/01 111 Complete URINALYSIS 04/01 1112 Complete EKG 04/01 1112 Active Laboratory Tests 04/01/17 1207: Anion Gap 12, Estimated GFR > 60, BUN/Creatinine Ratio 14.3, Glucose 88, Calcium 9.2, Total Bilirubin 0.7, AST 23, ALT 46, Alkaline Phosphatase 64, Total Protein 6.9, Albumin 4.1, Globulin 2.8, Albumin/Globulin Ratio 1.5, CBC w Diff NO MAN DIFF REQ, RBC 4.73, MCV 87.0, MCH 29.6, RDW 12.9, MPV 9.5, Gran % 50.7, Lymphocytes % 41.2, Monocytes % 6.0, Eosinophils % 1.8, Basophils % 0.3, Absolute Granulocytes 3.5, Absolute Lymphocytes 2.8, Absolute Monocytes 0.4, Absolute Eosinophils 0.1, Absolute Basophils 0, PUBS MCHC 34.1 04/01/17 1206: Urinalysis LIGHT H, Urine Color YEL, Urine Clarity HAZY H, Urine pH 6.0, Ur Specific [place] 1.025, Urine Protein NEG, Urine Ketones NEG, Urine Nitrite NEG, Urine Bilirubin NEG, Urine Urobilinogen 1.0, Ur Leukocyte Esterase TRACE H, Ur Microscopic SEDIMENT EXAMINED, Urine RBC RARE, Urine WBC 1-3 H, Ur Epithelial Cells MANY H, Urine Bacteria MANY H, Urine Mucus MOD H, Urine Hemoglobin NEG, Urine Glucose NEG, Urine Test NEGATIVE Initial ED EKG: normal intervals, normal p-waves, normal sinus rhythm, rate (82) , nonspecific ST T wave chg Prior EKG: unchanged Departure Departure Disposition: HOME OR SELF CARE Condition: Stable Clinical Impression Primary Impression: Biliary colic Secondary Impressions: Cholelithiasis Referrals: PATIENT HAS NO PRIMARY CARE DR (PCP/Family) Additional Instructions: Call Dr. Greene's office to schedule surgery for Wednesday or Wednesday of next week. Return if any other concerns. Please go over all results of today's visit with your primary care doctor. Contact your primary care doctor to let them know you were here in the emergency room. There may be nonspecific findings which may not be related to your visit today here in the emergency room but may require further evaluation and chronic monitoring by your primary care doctor. If you had a laceration today the chance of foreign body always remains. You should follow-up with your primary care doctor for recheck in 3-5 days for a wound check. If you had an x-ray done there is a chance that a fracture could have been missed on initial read and you should follow-up with your primary care doctor for repeat x-rays if symptoms persist. If your blood pressure was elevated here in the emergency room please have rechecked by her primary care doctor within the next 48 hours by your primary care doctor. If you were prescribed a narcotic here in the emergency room or any type of controlled substances you're not allowed to drive while taking this medication or operate any type of heavy machinery. Narcotics can make you feel lightheaded dizziness nausea and can cause constipation. You may need to tile picker a stool softener. Thank you for choosing [facility] emergency room. Please return to the emergency room immediately if you have any other concerns worsening of symptoms. Departure Forms: Customer Survey General Discharge Information Comments 04/01/2017 6:50:[address] Patient [address] Greene here in the emergency room. Patient is going to be scheduled to go to the the OR on Wednesday or Wednesday of next week. There is no available today. It is not emergent. Pain is under control.
[2017-04-01 12:29] LABS: ABSOLUTE BASOPHIL COUNT 0 /CUMM (0.0-0.2); ABSOLUTE EOSINOPHIL COUNT 0.1 /CUMM (0.0-0.7); ABSOLUTE GRANULOCYTE CT 3.5 /CUMM (1.4-6.5); ABSOLUTE LYMPH COUNT 2.8 /CUMM (1.2-3.4); ABSOLUTE MONOCYTE COUNT 0.4 /CUMM (0.10-0.60); BASOPHIL % 0.3 % (0.0-2.0); EOSINOPHIL % 1.8 % (0-5); GRANULOCYTE % 50.7 % (42.2-75.2); HEMATOCRIT 41.2 % (37-47); MEAN CORPUSCULAR HGB 29.6 PG (27.0-31.0); MEAN CORPUSCULAR HGB CONC 34.1 G/DL (33.0-37.0); MEAN PLATELET VOLUME 9.5 FL (7.4-10.4); PLATELET COUNT 224 /CUMM (130-400); RBC DISTRIBUTION WIDTH 12.9 % (11.5-14.5); RED BLOOD CELL CT 4.73 /CUMM (4.20-5.40); WHITE BLOOD CELL COUNT 6.9 /CUMM (4.8-10.8)
[2017-04-01 15:14] VITALS: BP 112/58
--- NOTE | 2017-04-02 11:39 | History & Physical Pre-Op ---
General Information and HPI History of Present Illness: Patient is a 21-year-old female who presents to the second ER visit with recurrent right upper quadrant abdominal pain. She is found previously to have gallstones by multiple sonograms. None of her ultrasounds showed acute inflammatory changes. She states these episodes happen after eating meals. She 's had 2 severe episodes in the past month. They are often times associated with nausea vomiting but no fevers chills or sweats. She began having symptoms during her most recent from which she has delivered 6 months ago. Allergies/Medications Allergies: Coded Allergies: codeine (BLACK OUT PER PT 04/01/17) oxycodone (PASSED OUT 04/01/17) shellfish derived (ANAPHYLAXIS 04/01/17) venom-honey bee (BEE VENOM (HONEY BEE)) (ANAPHYLAXIS 04/01/17) Opioids - Morphine Analogues (HX OPIOID DEPENDENCE. PT REQUESTING NO OPIOIDS GIVEN. 04/01/17) Home Med list Clotrimazole/Betamethasone Dip (Clotrimazole-Betamethasone Crm) 1 %-0.05 % CREAM..G. 1 MARIO TOP BID C SECTION (Reported) apply to affected area(s) Epinephrine (Epipen 2-Gilbert) 0.3 MG/0.3 ML AUTO.INJCT 0.3 MG IM AD PRN ALLERGIC REACTION (Reported) Ibuprofen 600 MG TABLET 1 TAB PO PRN PAIN/INFLAMMATION (Reported) with food Medroxyprogesterone Acetate (Depo-Provera) 150 MG/ML DESI 1 ML IM Q3M CONTROL (Reported) Meloxicam (Mobic) 15 MG TABLET 1 TAB PO DAILY pain Oxycodone HCl/Acetaminophen (Percocet 5-325 MG Tablet) 5 MG-325 MG TABLET 1-2 TAB PO Q6P PRN PAIN OXYCODONE HCL/ACETAMINOPHEN (Percocet 5-325 MG Tablet) 325 MG/5 MG TAB 1-2 TAB PO Q4-6 PRN PRN PAIN Sertraline HCl 50 MG TABLET 0.5 TAB PO DAILY PSOT DEPRESSION (Reported ) Tramadol HCl 50 MG TABLET 1 TAB PO BIDP PRN pain Past History Medical History Neurological: NONE EENT: NONE Cardiovascular: NONE Respiratory: pneumonia Gastrointestinal: NONE Hepatic: NONE Renal: NONE Musculoskeletal: NONE Psychiatric: anxiety, depression, opioid dependence Endocrine: NONE Blood Disorders: NONE Cancer(s): NONE 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 Abdominal pain per HPI. No dyspnea on exertion. No exertional chest pain. Remainder 12 points negative Exam & Diagnostic Data Last 24 Hrs of Vital Signs/I&O Vital Signs Date Time Temp Pulse Resp B/P B/P Pulse O2 O2 Flow FiO2 Mean Ox Delivery Rate 04/01 1514 98.0 72 12 112/58 100 Room Air 04/01 1244 86 16 124/85 98 Room Air Physical Exam: Gen.: She is obese looks older than her stated age no distress HEENT: Anicteric PERRL EOMI Neck: Supple no adenopathy no JVD no thyromegaly Chest: Normal respiratory excursion, normal respiratory effort, nontender Abdomen: Soft and tender right upper quadrant. No Martines sign no mass no hernia Extremities no cyanosis clubbing or edema Last 24 Hrs of Labs/Steven: Laboratory Tests 04/01/17 1207: Anion Gap 12, Estimated GFR > 60, BUN/Creatinine Ratio 14.3, Glucose 88, Calcium 9.2, Total Bilirubin 0.7, AST 23, ALT 46, Alkaline Phosphatase 64, Total Protein 6.9, Albumin 4.1, Globulin 2.8, Albumin/Globulin Ratio 1.5, CBC w Diff NO MAN DIFF REQ, RBC 4.73, MCV 87.0, MCH 29.6, RDW 12.9, MPV 9.5, Gran % 50.7, Lymphocytes % 41.2, Monocytes % 6.0, Eosinophils % 1.8, Basophils % 0.3, Absolute Granulocytes 3.5, Absolute Lymphocytes 2.8, Absolute Monocytes 0.4, Absolute Eosinophils 0.1, Absolute Basophils 0, PUBS MCHC 34.1 04/01/17 1206: Urinalysis LIGHT H, Urine Color YEL, Urine Clarity HAZY H, Urine pH 6.0, Ur Specific [place] 1.025, Urine Protein NEG, Urine Ketones NEG, Urine Nitrite NEG, Urine Bilirubin NEG, Urine Urobilinogen 1.0, Ur Leukocyte Esterase TRACE H, Ur Microscopic SEDIMENT EXAMINED, Urine RBC RARE, Urine WBC 1-3 H, Ur Epithelial Cells MANY H, Urine Bacteria MANY H, Urine Mucus MOD H, Urine Hemoglobin NEG, Urine Glucose NEG, Urine Test NEGATIVE Diagnostic Data Other Results Ultrasound shows gallstones without wall thickening or pericholecystic fluid. Bile duct is normal. Assessment/Plan Assessment/Plan: Biliary colic in obese, otherwise healthy young woman. Plan will be to discharge her from the emergency room and schedule outpatient laparoscopic cholecystectomy at the earliest availability of the OR. She is informed the risk of the operation including bleeding, infection, conversion to open, and the presence of postcholecystectomy diarrhea. She agrees to proceed As Ranked By This Provider Problem List: 1. Biliary colic
== END 2017-04-01 16:15 ==
LOC: ERH 11:02
PROVIDERS: Physician Assistant Medical
DX: K80.70 Calculus of gallbladder and bile duct without cholecystitis without obstruction (principal)
CPT/HCPCS: 81001; 81025; 93005; 93010; 96374; 96375

== ENCOUNTER → 2017-04-05 | Day surgery (SDC) | payer OTHER ==
[~2017-04-05] VITALS: Ht 162.6 cm; Wt 108.9 kg
[~2017-04-05] MED LIST changes: +KEFLEX500 M1 PO; +NORCO 5-325 TA1 EACH PO
--- NOTE | 2017-04-05 15:37 | Operative Report ---
Operative/Inv Procedure Report Surgery Date: 04/05/17 Name of Procedure: Laparoscopic cholecystectomy Pre-Operative Diagnosis: Biliary colic Post-Operative Diagnosis: Same Estimated Blood Loss: scant Surgeon/Donor Services Specialist: JORGITO SOSA MD/jillian Christianson Anesthesia: general endotracheal tube Operative Indication: See preoperative H&P Operative/Procedure Note Note: After informed consent patient is brought to the operating room and laid supine. General anesthesia was obtained and her abdomen was prepped and draped. The skin above the umbilicus infiltrated with local anesthesia and a curvilinear incision made sharply. We came down through the subcutaneous tissues bluntly and grasped the fascia with Ethan's. A fasciotomy was created sharply and stay sutures placed. The peritoneum was entered sharply and a blunt Dai port was placed. Pneumoperitoneum was achieved. 3, 5 mm ports were placed in the epigastrium and right upper quadrant after local anesthesia was instilled and under direct vision the camera. She's placed in reverse Trendelenburg and rotated towards the left. The gallbladder is identified. It was grasped at the dome and retracted towards the head. Infundibulum was then grasped. Adhesions to the undersurface were taken down with blunt and cautery dissection. We dissected both sides the triangle Calot peritoneal tissue with cautery. The artery was medial and its normal anatomic position. It was cauterized medially to allow it to be mobilized away from the duct. [place] was cleared of areolar tissue with cautery. The arteries and duct were doubly ligated with clips. Gallbladder is removed from the fossa electrocautery. There was a posterior branch of the artery on the right side which was dissected free and clipped ligated It was placed in Endo Catch bag and cinched up. Right upper quadrant was and suction irrigated normal saline. Hemostasis achieved with cautery. The ports were then removed and the gallbladder delivered and passed off the field. The fascia was closed with 0 Vicryl suture. Skin incisions closed with 4-0 Vicryl. Steri-Strips and sterile dressing applied. Sponge and needle counts are correct.
== END ==
LOC: STS 01:39
DX: K80.10 Calculus of gallbladder with chronic cholecystitis without obstruction (principal); E66.9 Obesity, unspecified; F17.200 Nicotine dependence, unspecified, uncomplicated; K80.21 Calculus of gallbladder without cholecystitis with obstruction
CPT/HCPCS: 81025; 88304; J0131; J0690; J2250

== ENCOUNTER 2017-04-14 17:23 | Emergency (ER) | payer OTHER ==
[~2017-04-14] VITALS: Ht 162.6 cm; Wt 108.9 kg
[~2017-04-14 17:23] MED LIST changes: -KEFLEX500 M1 PO; -NORCO 5-325 TA1 EACH PO
[2017-04-14 17:26] VITALS: BP 125/85
--- NOTE | 2017-04-14 18:12 | ED GI/GU/ABDOMINAL COMPLAINT ---
History of Present Illness General Chief Complaint: General Adult Stated Complaint: INCISION PAIN AND BLEEDING FROM SURGICAL SI Source: patient, old records Exam Limitations: no limitations Vital Signs & Intake/Output Vital Signs & Intake/Output Vital Signs Date Time Temp Pulse Resp B/P B/P Pulse O2 O2 Flow FiO2 Mean Ox Delivery Rate 04/14 1726 96.8 81 16 125/85 98 Room Air Allergies Coded Allergies: codeine (BLACK OUT PER PT 04/01/17) oxycodone (PASSED OUT 04/01/17) shellfish derived (ANAPHYLAXIS 04/01/17) venom-honey bee (BEE VENOM (HONEY BEE)) (ANAPHYLAXIS 04/01/17) Reconcile Medications Cephalexin (Keflex) 500 MG CAPSULE 1 CAP PO TID cellulitis Clotrimazole/Betamethasone Dip (Clotrimazole-Betamethasone Crm) 1 %-0.05 % CREAM..G. 1 MARIO TOP BID C SECTION (Reported) apply to affected area(s) Epinephrine (Epipen 2-Gilbert) 0.3 MG/0.3 ML AUTO.INJCT 0.3 MG IM AD PRN ALLERGIC REACTION (Reported) Hydrocodone/Acetaminophen ([place] 5-325 Tablet) 5 MG-325 MG TABLET 1 TAB PO Q4- 6 PRN PRN pain Ibuprofen 600 MG TABLET 1 TAB PO PRN PAIN/INFLAMMATION (Reported) with food Medroxyprogesterone Acetate (Depo-Provera) 150 MG/ML DESI 1 ML IM Q3M CONTROL (Reported) Meloxicam (Mobic) 15 MG TABLET 1 TAB PO DAILY pain Oxycodone HCl/Acetaminophen (Percocet 5-325 MG Tablet) 5 MG-325 MG TABLET 1-2 TAB PO Q6P PRN PAIN OXYCODONE HCL/ACETAMINOPHEN (Percocet 5-325 MG Tablet) 325 MG/5 MG TAB 1-2 TAB PO Q4-6 PRN PRN PAIN Sertraline HCl 50 MG TABLET 0.5 TAB PO DAILY PSOT DEPRESSION (Reported ) Tramadol HCl 50 MG TABLET 1 TAB PO BIDP PRN pain Triage Note: PT STATES SHE HAD LAPROSCOPIC SURGERY ON HER GALLBALDDER AND NOW HER BELLY BUTTON IS BLEEDING AND SHE IS HAVING PAIN. PT CALLED DR. BARRETT AND WAS TOLD TO COME TO ED. Triage Nurses Notes Reviewed? yes ? N Is pt currently ? No (`) Onset: Abrupt Duration: day(s): (4), constant, waxing and waning Timing: recent history Quality/Severity: aching, cramping Severity Numbers: 4 Location: UMBILICAL Radiation: no radiation Activities at Onset: none Prior Abdominal Problems: none No Modifying Factors: none Associated Symptoms: DENIES HPI: 21-year-old female status post laparoscopic cholecystectomy on April 05 presents to ER complaining of a 4 day history of constant waxing and waning redness and umbilical pain at the site of her umbilical incision. The patient denies any fevers chills nausea vomiting or change in her bowel movements no diarrhea. She states she called her general surgeon Dr. BARRETT who advised her to come to the ER. She denies any other incisional pain, no discharge from the wound however states that it has been oozing blood since the symptoms began. No modifying factors or associated symptoms otherwise. (MELISSA MILLS) Past History Travel History Traveled to [place] past 21 day No Medical History Any Pertinent Medical History? 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 No (MELISSA MILLS) Review of Systems Review of Systems Constitutional: Reports: see HPI. All Other Systems: Reviewed and Negative Comments Review of systems: See HPI, All other systems negative. Constitutional, no chills no fever, no malaise HEENT: no sore throat no congestion, no ear pain Cardiovascular: No chest pain , no palpitation , no orthopnea Skin: no rashes, no change in skin Respiratory: No dyspnea no cough no sputum GI: No nausea no vomiting, no diarrhea, : No dysuria Muscle skeletal: No joint pain, no joint swelling, no back pain, no neck pain, Neurologic: No numbness no headache Psych: No stres Heme/endocrine: No bruising no bleeding Immunology: No lymphadenopathy (MELISSA MILLS) Physical Exam Physical Exam General Appearance: well developed/nourished, alert, awake Gastrointestinal: normal bowel sounds, soft Comments: Well-developed well-nourished person in no acute distress HEENT: Normal EENT exam; PERRL, EOMI, HEAD is atraumatic. moist mucous membranes. Neck: Supple, normal range of motion Back: Nontender, Full range of motion Cardiovascular: Regular rate and rhythms no murmurs rubs Respiratory: No respiratory distress. Patient speaking in full complete sentences. Breath sounds clear to auscultation bilaterally: NO W/R/R Abdomen: Soft, nontende the surgical incision at the umbilicus has mild surrounding erythema no induration or fluctuance, the remaining incision sites are clean dry and intact nondistended, no appreciable organomegaly. Normal bowel sounds. No rebound/guarding no active bleeding oozing or discharge elicited with palpation at the umbilical incision Extremity: No edema, full range of motion of extremities Neuro: Alert oriented x3, motor sensory normal, There were no obvious focal neurologic abnormalities. Skin: No appreciable rash on exposed skin, skin is warm and dry. Psych: Mood and affect is normal, memory and judgment is normal. Core Measures ACS in differential dx? No Severe Sepsis Present: No Septic Shock Present: No (MELISSA MILLS) Progress Differential Diagnosis: appendicitis, biliary colic, bowel obstruction, gastritis, hepatitis, inflamm bowel dis, perforated viscous, SBO, cellulitis, intrabdominal abscess Plan of Care: Patient clinically appears well and nontoxic appearing discussed with her plan need for close follow up with Dr. barrett, she will return to the ER in 48 hours if unable to be seen by him, she will return anytime sooner she develops fever chills nausea vomiting worsening pain despite medication redness or any other concerns. Initial ED EKG: none (MELISSA MILLS) Departure Departure Time of Disposition: 1815 Disposition: HOME OR SELF CARE Condition: Stable Clinical Impression Primary Impression: Visit for wound check Referrals: PATIENT HAS NO PRIMARY CARE DR (PCP/Family) Additional Instructions: no heavy lifting. Return to the ER in 48 hours for wound check. Keflex as directed. Vicodin for breakthrough pain this is a narcotic highly addictive no driving or drinking alcohol while taking. These were sent to [facility] Departure Forms: Customer Survey General Discharge Information Prescriptions: Current Visit Scripts Cephalexin (Keflex) 1 CAP PO TID #21 CAP Hydrocodone/Acetaminophen ([place] 5-325 Tablet) 1 TAB PO Q4-6 PRN PRN pain #12 TAB (MELISSA MILLS) PA/OUTREACH SPECIALIST Co-Sign Statement Statement: ED Attending supervision documentation- [] I saw and evaluated the patient. I have also reviewed all the pertinent lab results and diagnostic results. I agree with the findings and the plan of care as documented in the PA's/OUTREACH SPECIALIST's documentation. [x] I have reviewed the ED Record and agree with the PA's/OUTREACH SPECIALIST's documentation. [] Additions or exceptions (if any) to the PAs/OUTREACH SPECIALIST's note and plan are summarized below: [] (LADONNA CYR DO)
[2017-04-14] MEDS ORDERED: PERCOCET 5-3251 EACH PO (18:18)
[2017-04-14] MEDS ORDERED: KEFLEX500 M1 PO (18:18)
[2017-04-14] MEDS ORDERED: NORCO 5-325 TA1 EACH PO (18:22)
== END 2017-04-14 18:00 ==
LOC: ERH 17:23
DX: Z48.01 Encounter for change or removal of surgical wound dressing (principal)
CPT/HCPCS: 99281

== ENCOUNTER 2018-08-20 14:45 | Emergency (ER) | payer OTHER ==
[~2018-08-20] VITALS: Ht 162.6 cm; Wt 106.6 kg
[~2018-08-20 14:45] MED LIST changes: +CLONIDINE HCL0.1 MG PO; +DILAUDID2 M1 PO; +GABAPENTIN100 M2 PO; +HYDROCODONE-IB1 EAC2 PO; +HYDROCODONE-IB1 EACH PO; +KEFLEX500 M1 PO; +MEDROL4 M2 PO; +NEURONTIN300 M1 PO; +NORCO 5-325 TA1 EACH PO; +TESSALON PERLE100 M1 PO; +VALTREX1000 MG PO; +VENTOLIN HFA18 GM INH; +ZITHROMAX500 M2 PO
[2018-08-20 14:52] VITALS: BP 130/95
[2018-08-20] MEDS ORDERED: NAPROSYN500 M1 PO (15:13)
--- NOTE | 2018-08-20 15:14 | ED GENERAL ADULT ---
History of Present Illness General Chief Complaint: Animal/Insect Bite Stated Complaint: "I WAS BIT BY A POISONOUS CATEPILLAR" Source: patient Exam Limitations: no limitations Vital Signs & Intake/Output Vital Signs & Intake/Output Vital Signs Date Time Temp Pulse Resp B/P B/P Pulse O2 O2 Flow FiO2 Mean Ox Delivery Rate 08/20 1452 97.1 86 18 130/95 98 Room Air Allergies Coded Allergies: codeine (BLACK OUT PER PT 04/01/17) oxycodone (PASSED OUT 04/01/17) shellfish derived (ANAPHYLAXIS 04/01/17) venom-honey bee (BEE VENOM (HONEY BEE)) (ANAPHYLAXIS 04/01/17) Triage Note: 23 YEAR OLD FEMALE STATES THAT 1100 SHE WAS ATTACKED BY AND AGGRESSIVE POISONOUS CATEPILLAR, STATES THAT IT WAS WHITE WITH BLACK STRIPE, COMPLAINS OF BURNING TO HER R HAND , STATES THAT SHE WAS PARALYZED FOR ABOUT 10 MINUTES BUT NOW JUST HAS BURNING TO HER HAND AND ARM Triage Nurses Notes Reviewed? yes Onset: Abrupt Duration: hour(s): Timing: single episode today : No Patient currently breastfeeds: No HPI: 23-year-old female with a history of anxiety, depression, opioid dependence presenting with a caterpillar sting to her right hand approximately 4 hours prior to arrival. Patient reports that [place] when a black and white caterpillar stung the thenar eminence of her right hand. She had numbness and paresthesias up her right upper extremity. Reports she was unable to move her right hand for approximately 10 minutes due to severe pain. The pain, numbness, and paresthesias have been gradually self improving. (Mireille Chavez) Reconcile Medications Albuterol Sulfate (Ventolin Hfa) 90 MCG HFA.AER.AD 2 PUF INH Q4-6 PRN PRN SHORTNESS OF BREATH Azithromycin (Zithromax) 500 MG TABLET 1 TAB PO DAILY BRONCHITIS Benzonatate (Tessalon Perle) 100 MG CAPSULE 1 CAP PO TID PRN COUGH Clonidine HCl 0.1 MG TABLET 1 TAB PO QPM ANXIETY (Reported) Diclofenac Sodium (Voltaren) 1 % GEL..GRAM. 1 GM TOP 4 TIMES/DAY PRN pain apply to affected area(s) Gabapentin 100 MG CAPSULE 1-3 CAP PO TIDP PRN SHINGLES PAIN (Reported) Gabapentin (Neurontin) 300 MG CAPSULE 1 CAP PO TID SHINGLES Hydrocodone/Ibuprofen (Hydrocodone-Ibuprofen 7.5-200) 7.5 MG-200 MG TABLET 1 TAB PO BID PRN PAIN Hydrocodone/Ibuprofen (Hydrocodone-Ibuprofen 5-200 MG) 5 MG-200 MG TABLET 1 TAB PO BIDP PRN pain Hydromorphone HCl (Dilaudid) 2 MG TABLET 1 TAB PO BIDP PRN PAIN Ibuprofen 600 MG TABLET 1 TAB PO Q6P PRN PAIN with food Methylprednisolone. (Medrol) 4 MG TAB.DS.PK 1 DP PO AD INFLAMMATION 6 on day 1 then reduce by one tablet daily until gone Naproxen (Naprosyn) 500 MG TABLET 1 TAB PO BID PRN pain Ondansetron (Zofran Odt) 4 MG TAB.RAPDIS 1 TAB SL Q6 PRN NAUSEA/VOMITING Ondansetron (Zofran Odt) 4 MG TAB.RAPDIS 1 TAB SL TID nausea Valacyclovir HCl (Valtrex) 1,000 MG TABLET 1 TAB PO TID shingles (Donnie ELAINE,Hermes Menjivar) Past History Travel History Traveled to [place] past 21 day No Medical History Any Pertinent Medical History? 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 No (Mireille Chavez) Review of Systems Review of Systems Constitutional: Reports: no symptoms. EENTM: Reports: no symptoms. Respiratory: Reports: no symptoms. Cardiovascular: Reports: no symptoms. GI: Reports: no symptoms. Genitourinary: Reports: no symptoms. Musculoskeletal: Reports: see HPI. Skin: Reports: no symptoms. Neurological/Psychological: Reports: no symptoms. Hematologic/Endocrine: Reports: no symptoms. Immunologic/Allergic: Reports: no symptoms. All Other Systems: Reviewed and Negative (Mireille Chavez) Physical Exam Physical Exam General Appearance: well developed/nourished, no apparent distress, alert, awake Comments: Gen.: Well-nourished, well-developed, no acute distress. Head: Normocephalic, atraumatic. Eyes: Normal inspection bilaterally Ears: Normal inspection bilaterally Nose: Normal inspection Neck: Normal inspection Lungs: clear to auscultation bilaterally, normnal breath sounds Heart: regular rate and rhythm Abdomen: soft and non-tender Extremities: Punctate insect sting to right thenar eminence, right upper extremity is neurovascularly intact with 2+ radial pulse. She is able to range all joints of her arm and hand. Neurologic: alert and oriented x3, steady gait Skin: warm and dry Psychiatric: Normal mood and affect, no apparent delusions or hallucinations, behavior appropriate Core Measures ACS in differential dx? No CVA/TIA Diagnosis: No Sepsis Present: No Sepsis Focused Exam Completed? No (Mireille Chavez) Progress Differential Diagnoses I considered the following diagnoses in my evaluation of the patient: [Insect bite/sting versus allergic reaction] Plan of Care: Given Rx naproxen for pain. Counseled on supportive care with ice. Given strict return precautions. Initial ED EKG: none (Mireille Chavez) Departure Departure Disposition: HOME OR SELF CARE Condition: Stable Clinical Impression Primary Impression: Insect sting Referrals: Gerson ELAINE,Hermes Wray (PCP/Family) Additional Instructions: Use naproxen as needed for pain. Apply ice to the area. Follow-up with your primary care provider for reevaluation. Return to the emergency department for any new or worsening symptoms. Departure Forms: Customer Survey General Discharge Information (Mireille Chavez) Departure Prescriptions: Current Visit Scripts Naproxen (Naprosyn) 1 TAB PO BID PRN pain #60 TAB Diclofenac Sodium (Voltaren) 1 GM TOP 4 TIMES/DAY PRN pain #1 TUBE apply to affected area(s) PA/SPEECH THERAPY TEACHER Co-Sign Statement Statement: ED Attending supervision documentation- [] I saw and evaluated the patient. I have also reviewed all the pertinent lab results and diagnostic results. I agree with the findings and the plan of care as documented in the PA's/SPEECH THERAPY TEACHER's documentation. [X] I have reviewed the ED Record and agree with the PA's/SPEECH THERAPY TEACHER's documentation. [] Additions or exceptions (if any) to the PAs/SPEECH THERAPY TEACHER's note and plan are summarized below: [] (Donnie ELAINE,Hermes Menjivar) Critical Care Note Critical Care Note Critical Care Time: non-applicable (Chelsea ORELLANA,Mireille)
[2018-08-20] MEDS ORDERED: VOLTAREN100 GM TOP (15:33)
== END 2018-08-20 15:16 ==
LOC: ERH 14:45
DX: T63.431A Toxic effect of venom of caterpillars, accidental (unintentional), initial encounter (principal); X58.XXXA Exposure to other specified factors, initial encounter; Y93.9 Activity, unspecified; Y92.9 Unspecified place or not applicable